=== PATIENT | male | born 1950 | race Caucasian/White ===

== ENCOUNTER 2024-03-08 08:22 | Outpatient (CLI) | payer MEDICARE, SELFPAY ==
--- NOTE | ~2024-03-08 | CT_ITS ---
CT of the Abdomen and Pelvis: Indication: Prostate cancer Technique: 2.5 mm axial scans were obtained through the abdomen and pelvis following intravenous adm inistration of 100 cc of Omnipaque 350. Dose reduction technique was used on this scan by utilizing a utomated exposure control and iterative reconstruction technique. The dose-length product (DLP) was 7 48.24 mGy-cm. Findings: Scans through the lung bases demonstrate linear right basilar atelectasis or scarring. The liver, spleen, pancreas, gallbladder, adrenals and kidneys are within normal limits. There are at herosclerotic calcifications of the aorta. No lymphadenopathy. No bowel obstruction or bowel wall thickening. There is no evidence to suggest acute appendicitis. Images through the pelvis were performed. Urinary bladder unremarkable. Prostate gland enlarged, with suggestion of possible 3 cm mass or irregularity in the anterior parotid gland. Left inguinal hernia contains fat and fluid. No distinct osteoblastic lesion identified. Impression: Suggestion of 3 cm prostate mass, which is compatible with a prior history of prostate carcinoma. Left inguinal hernia contains fat and fluid. No CT evidence for metastatic disease. Reviewed, dictated and finalized at location M. Impression: Suggestion of 3 cm prostate mass, which is compatible with a prior history of p rostate carcinoma. Left inguinal hernia contains fat and fluid. No CT evidence for metastatic disease.
--- NOTE | ~2024-03-08 | NM_ITS ---
EXAMINATION: NM bone scan whole body DATE: 03/08/2024 12:46 INDICATION: Malignant neoplasm of prostate. TECHNIQUE: 26.5 mCi Tc-99m HDP was administered intravenously. Delayed whole-body scintigrams were o btained. COMPARISON: CT abdomen and pelvis 03/08/2024 FINDINGS: There is a pattern of increased activity to suggest metastatic disease. IMPRESSION: 1. No evidence of metastatic disease. Reviewed, dictated and finalized at location E.
[2024-03-08 08:49] LABS: Estimated Glomerular Filt Rate 59
== END 2024-03-08 08:23 | disposition home or self-care (01) ==
PROVIDERS: Visit Provider Urology
DX: C61 Malignant neoplasm of prostate (principal); K40.90 Unilateral inguinal hernia, without obstruction or gangrene, not specified as recurrent
CPT/HCPCS: 74177; 78306; A9503; Q9967

== ENCOUNTER 2025-06-11 09:38 | Outpatient (CLI) | payer MEDICARE, SELFPAY ==
--- NOTE | ~2025-06-11 | XR_ITS ---
EXAMINATION: XR knee LT 3V, 06/11/2025 9:52 CDT HISTORY: CHRONIC LT ANTERIOR KNEE PAIN WORSEN x2 MONTHS COMPARISON: No comparisons available. Findings: No acute fracture or malalignment. No significant degenerative changes. Soft tissues unremarkable. Impression: No acute fracture or malalignment. Reviewed, dictated and finalized at location A. Impression: No acute fracture or malalignment.
== END 2025-06-11 09:39 | disposition home or self-care (01) ==
LOC: MICIMG 09:40
PROVIDERS: PCP Internal Medicine; Visit Provider Internal Medicine
DX: M25.562 Pain in left knee (principal); G89.29 Other chronic pain
CPT/HCPCS: 73562